=== PATIENT | female | born 1965 | race Caucasian/White ===

== ENCOUNTER 2021-06-18 10:52 | Day surgery (SDC) | payer OTHER, SELFPAY ==
--- NOTE | 2021-06-11 12:28 | HP.PCM_ITS ---
History and Physical Date of Admission: 06/18/21 HPI: The patient is a 55 year old female presenting for pre-operative visit. She is scheduled for Hysteroscopy D&C and possible polypectomy, for postmenopausal bleeding and thickened endometrium on 06/18/21. Procedure discussed along with risks, benefits and complications. Other alternatives discussed for management. Consent form signed? Yes. ? ? PAST MEDICAL HISTORY PAST MEDICAL HISTORY Diagnosis Date ? Psychiatric disorder ? ? ? PAST SURGICAL HISTORY PAST SURGICAL HISTORY Procedure Laterality Date ? LEEP PROCEDURE ([facility] [facility])_*[place] ? approx 2002 ? ? ? CURRENT MEDICATIONS Current Outpatient Medications Medication Sig Dispense Refill ? amphetamine-dextroamphetamine XR (ADDERALL XR) 25 mg 24 hr capsule ? valACYclovir (VALTREX) 1 gram Take by mouth q 12 HR. ? ? ? nitrofurantoin monohydrate and macrocrystal (MACROBID) 100 mg capsule Take 1 capsule by mouth as directed. use to prevent UTI 30 capsule 1 ? buPROPion XL (WELLBUTRIN XL) 300 mg 24 hr tablet Take 450 mg by mouth once daily. ? dextroamphetamine-amphetamine (ADDERALL) 10 mg tablet Take 1 Tablet By Ora l Route 1 time per day in the afternoon (Patient not taking: Reported on 06/09/2021) ? ? ? amphetamine-dextroamphetamine XR (ADDERALL XR) 30 mg 24 hr capsule TAKE 1 CAPSULE DAILY along WITH 10mg (Patient not taking: Reported on 06/09/2021) ? ? ? amphetamine-dextroamphetamine XR (ADDERALL XR) 10 mg 24 hr capsule TAKE 1 CAPSULE DAILY along WITH 30mg (Patient not taking: Reported on 06/09/2021) ? ? ? venlafaxine ER (EFFEXOR XR) 75 mg 24 hr capsule Take 75 mg by mouth once daily. (Patient not taking: Reported on 06/09/2021 ) ? ? ? nefazodone (SERZONE) 200 mg tablet Take 100 mg by mouth once daily. (Per rowe not taking: Reported on 06/09/2021 ) ? ? ? No current facility-administered medications for this visit. ? ? ALLERGIES: Amoxicillin and Sulfa (Sulfonamide Antibiotics) ? PERSONAL HISTORY: SOCIAL HISTORY Social History ? Tobacco Use ? Smoking status: Never Smoker ? Smokeless tobacco: Never Used Vaping Use ? Vaping Use: Never used Substance Use Topics ? Alcohol use: Yes ? ? Comment: occasional ? Drug use: Never ? FAMILY HISTORY: FAMILY HISTORY FAMILY HISTORY Problem Relation Age of Onset ? Breast Cancer Mother ? ? ? REVIEW OF SYMPTOMS: GENERAL: denies fevers or chills ENDOCRINOLOGY: has not been on steroids Cardiology : denies palpitations or chest pain Respiratory: denies SOB or cough Hematology: denies history of prolonged bleeding or easy bruising or VTE Allergy: Denies history of personal or family history of allergy to anesthesia ? PHYSICAL EXAMINATION: ? VITALS: Blood pressure 132/78, weight 147 lb (66.7 kg), last menstrual period 05/04/2020. ? GENERAL: The patient is well nourished, well hydrated in no acute distress. , The patient is oriented to time, place, and person. NECK: Supple. No lynphadenopathy, normal thyroid, no thyromegaly. LUNGS: Clear to auscultation bilaterally. no wheezes, rhonchi or rales HEART: Regular rate and rhythm, Normal heart sounds and No murmurs or gallops ? IMPRESSION: PMB, cervical stenosis, thickened endometrium ? PLAN: The risks/benefits/alternatives and personal involved for the planned Hsyteroscopy D&C with possible polyp resection were reviewed with the patient. Her questions were answered to her satisfaction and she desires to proceed. Consent was signed. I reviewed with her postop instructions and expectations. ? ? I have reviewed and updated past medical and surgical history, medications and allergies Assessment & Plan Assessment/Plan (1) Postmenopausal bleeding: (2) Thickened endometrium: (3) Stenosis, cervix:
[2021-06-18] VITALS (8 sets, daily range): BP systolic 121–145; BP diastolic 50–71; PULSE 61–83; RESP 16–18; TEMP 36.3–37.1; O2SAT 99–100; BMI 25.2
[2021-06-18 11:31] LABS: Internal QC Validated? YES +Cl - CLEAR BKGD; Pregnancy, Urine Negative Negative
[2021-06-18 11:31] LABS: Hematocrit 39.2 % (37-47); Hemoglobin 13.3 g/dL (12.0-15.0); Mean Corp Hgb Conc 33.9 g/dL (32-36); Mean Corpuscular Hgb 31.7 pg (27.0-32.0); Mean Corpuscular Volume 93.3 fL (81-99); Mean Platelet Vol. 9.1 fl (6.2-12.0); Platelet Count 313 K/mm3 (150-450); RBC Distribution Width CV 12.8 % (11.6-14.6); RBC Distribution Width SD 43.8 fl (35.1-43.9)
[2021-06-18] MEDS: Lactated Ringers 1,000 ML 15 ML IV (11:31)
--- NOTE | 2021-06-18 12:11 | PCM.DC ---
Discharge Instructions Diet Discharge Diet: No restrictions Activity May resume sexual activity in: 2 weeks Lifting Restrictions: none Dressing / Incision Call your doctor if your incision/area has: Sudden Increased Bleeding and Foul Smelling Discharge Call your doctor if you observe: Fever of 101 or Higher and Using more than 1 pad per hour (for 2 hrs in a row) Follow Up Care Please Follow Up With: Jacqueline Pham MD When: 2-4 weeks or as needed. Call [phone] to make an appointment or with any concerns. Test Results: Test results from this visit will be discussed in further detail at your follow-up appointment, if applicable. Discharge Plan Admission Primary Reason for Your Visit: Hysteroscopy D&C Attending Provider: Jacqueline Pham Primary Care Provider: Isa Norris Discharge Orders/Prescriptions Prescriptions: No Action bupropion HCl [Wellbutrin SR] 150 mg Tablet Sustained-Release 12 Hr 150 mg PO DAILY RF: 0 dextroamphetamine-amphetamine [Adderall XR] 25 mg Capsule,Extended Release 24hr 50 mg PO DAILY RF: 0 Referrals / Follow Up: Isa Norris MD [Primary Care Provider] - Disposition Disposition (needs filled in before D/C Order can be placed): Home, Self Care
[2021-06-18] MEDS: Vasopressin 20 UNITS/ML Vial (12:28)
[2021-06-18] MEDS: Lubricating Jelly 60 GM Tube 30 GM (12:28)
[2021-06-18] MEDS: 0.9% Normal Saline (Pres. free 10 ML Vial (12:28)
--- NOTE | 2021-06-18 12:42 | PCM.OPRPT ---
Problems Associated Problem List Diagnoses (1) Postmenopausal bleeding: (2) Thickened endometrium: (3) Stenosis, cervix: Report of Operation Date of Procedure: 06/18/21 Pre-Operative Diagnosis: PMB, thickened endometrium, stenotic cervical os Post-Operative Diagnosis: same Surgery/Procedure Performed:: Hysteroscopy D&C Description of Surgical Findings:: Atrophic normal endometrium, flush stenotic cervix Surgeon: Jacqueline Pham electrical system specialist: None Type of Anesthesia: MAC Anesthesiologist: Steph Osborne Special Medications: none Specimen's removed: endometrial curettings Drains: none Estimated Blood Loss (mL): 5 Fluids Replaced: 800 Description of Procedure: The patient was taken to the OR where she was prepped and draped in dorsal lithotomy position. The weighted speculum was placed in the vagina and the anterior lip of the cervix was grasped with a single-tooth tenaculum. 10 units of the delivery vasopressin solution with 20 units of vasopressin and 40 cc of normal saline were injected paracervically around the cervix to help soften the stenotic cervix. Gentle traction had to be placed on both the posterior and anterior cervix to allow penetration of the external cervical os. The cervix was dilated serially with Hegar dilators. The Symphion hysteroscope was placed into the uterine cavity and the above findings were noted. Bilateral tubal ostia were identified. The hysteroscope was removed. A gentle sharp curettage was done of the uterine cavity. Another brief visualization of the endometrial cavity was performed and no other focal abnormalities were noted. The instruments were removed from the vagina. The specimen was handed off and sent to pathology. All sponge and needle counts were correct. Vaginal sweep was performed by me. The patient was awakened and taken to the recovery room in stable condition. Calculated hysteroscopic fluid deficit is 200 cc of normal saline Findings: Endometrial cavity: Normal, no fibroids or polyps noted Cervix: Normal Vagina: Normal Grafts/Implants Used: none Procedure Start Time: 12:28 Procedure Stop Time: 12:35 Complications none Admit VTE Documentation VTE Present on Admission: No VTE Mechan Device Prophylaxis: SCD's VTE Pharm Prophylaxis ordered?: No Reason prophylaxis not ordered:: Procedure Not Indicated
--- NOTE | 2021-06-18 13:05 | EMB_PTH ---
PATIENT: TORY VARGAS [place]: [facility] [place] U#:[id number] AGE/SX: 55/F ROOM: RE06/18/[address]: Dr. Jacqueline Pham MD : 1965 BED: DIS: 06/18/2021 SPEC #: [id number] RECD: 06/18/21 14:02 STATUS: TAMIA MONTALVO #: [id number] ALTAF: 06/18/21 13:[address]: Jacqueline Pham DEPT: SURGICAL PATHOLOGY RECD BY: Antonieta Blake ENTERED: 06/21/21 12:25 SP TYPE: ENDOM BX/C RICHARD DR: Dr. Isa Norris MD Tissues: Endometrium, NOS Procedures: Surgery Specimen Level IV HEADER OPERATION: Hysteroscopy, D & C PRE-OP DIAGNOSIS: Postmenopausal bleeding, thickened endometrium, stenosis cervix TISSUE SUBMITTED: Endometrial curettings MICROSCOPIC DIAGNOSIS Endometrium, curettings: Polypoid fragments of endometrium with simple cystic change. Rare fragments of benign squamous mucosa. AM:danielle 06/22/2021 MICROSCOPIC DESCRIPTION Slides are reviewed. GROSS DESCRIPTION Received in fixative is one container labeled with the patient's name and designated endometrial curettings. The specimen consists of multiple irregular fragments of light ramirez soft tissue that in aggregate measure 1.5 x 1 x 0.1 cm. The specimen is totally submitted in one cassette. / AM:danielle 06/21/2021 TC:5 CPT: 77297
== END 2021-06-18 23:59 | disposition home or self-care (01) ==
LOC: SDC 10:54 → AC 10:56
PROVIDERS: PCP Family Medicine; Referring Provider Obstetrics & Gynecology; Visit Provider Obstetrics & Gynecology
PROC: 0UB98ZZ Excision of Uterus, Via Natural or Artificial Opening Endoscopic (ICD-10-PCS; CPT 58558; principal; 2021-06-18 12:50)
DX: N95.0 Postmenopausal bleeding (principal); N88.2 Stricture and stenosis of cervix uteri; R93.89 Abnormal findings on diagnostic imaging of other specified body structures; Z20.822 Contact with and (suspected) exposure to COVID-19; Z79.899 Other long term (current) drug therapy
CPT/HCPCS: 58558; 00952; 81025; 85027; 87426; 88305; J7120; J3490